=== PATIENT | male | born 1950 | race Caucasian/White ===

== ENCOUNTER 2020-08-18 06:41 | Emergency (ER) | payer MEDICARE, MEDICAID ==
[~2020-08-18] VITALS: Ht 180.3 cm; Wt 63.5 kg
== END 2020-08-18 07:28 | disposition home or self-care (01) ==
LOC: ED 06:41
DX: F41.9 Anxiety disorder, unspecified (principal); F11.23 Opioid dependence with withdrawal
CPT/HCPCS: 99283; A9270-GY